=== PATIENT | female | born 1965 | race Two or more races ===

== ENCOUNTER 2024-02-03 02:03 | Emergency (ER) | payer BC, OTHER ==
[~2024-02-03] VITALS: Ht 152.4 cm; Wt 83.9 kg
[2024-02-03] MEDS ORDERED: ASPIRIN 325 MG TABLET ONE (02:26)
[2024-02-03] MEDS: ASPIRIN 325 MG TABLET PO ONE (02:29)
[2024-02-03 03:07] LABS: BASOPHILS # (AUTO) 0.1 K/uL (0.0-0.2); BASOPHILS % (AUTO) 0.8 % (0.0-2.0); EOSINOPHILS # (AUTO) 0.1 K/uL (0.0-0.7); EOSINOPHILS % (AUTO) 1.9 % (0.0-6.0); HEMATOCRIT 41 % (33-45); HEMOGLOBIN 14.1 g/dL (11.5-14.8); LYMPHOCYTES # (AUTO) 2.6 K/uL (0.8-4.8); LYMPHOCYTES % (AUTO) 36.4 % (20.0-44.0); MEAN CORPUSCULAR HEMOGLOBIN 29 PG (26.0-33.0); MEAN CORPUSCULAR HGB CONC 34 g/dl (31.0-36.0); MEAN CORPUSCULAR VOLUME 86 fL (82-100); MONOCYTES # (AUTO) 0.5 K/uL (0.1-1.30); MONOCYTES % (AUTO) 6.4 % (2.0-12.0); NEUTROPHILS # (AUTO) 3.8 K/uL (1.8-8.9); NEUTROPHILS % (AUTO) 54.5 % (43.0-81.0); PLATELET COUNT (AUTO) 161 K/uL (150-450); RED BLOOD CELL COUNT(AUTO) 4.81 MIL/uL (4.0-5.2); RED CELL DISTRIBUTION WIDTH 13.1 % (11.5-15.0)
[2024-02-03 03:11] LABS: CALCIUM, SERUM 9.2 mg/dL (8.5-10.1); CARBON DIOXIDE 26 mmol/L (21-32); CHLORIDE 104 mmol/L (98-107); CREATININE 0.9 mg/dL (0.6-1.3); GLUCOSE 212 mg/dL (74-106); POTASSIUM 3.7 mmol/L (3.5-5.1); SODIUM SERUM 138 mmol/L (136-145); UREA NITROGEN, BLOOD 21 mg/dL (7-18)
[2024-02-03 03:18] LABS: INR 1.06 (0.91-1.10); PARTIAL THROMBOPLASTIN TIME 24.1 SEC (24.3-34.3); PROTHROMBIN TIME 11.2 SECS (9.2-11.1)
[2024-02-03] MEDS ORDERED: IV NS 0.9% 250 ML IV ONE (03:51)
[2024-02-03] MEDS ORDERED: IOHEXOL-350 100 ML VIAL IV ONE (03:51)
[2024-02-03 05:51] VITALS: BP 128/78; TEMP 98; O2SAT 98
[2024-02-04] MEDS ORDERED: FAMO20TA8 PO (08:23)
[2024-02-04] MEDS ORDERED: NAPR-1009 PO (08:23)
== END 2024-02-03 06:03 | disposition left against medical advice (07) ==
LOC: ER 02:05
DX: R07.9 Chest pain, unspecified (principal); R79.89 Other specified abnormal findings of blood chemistry; R00.0 Tachycardia, unspecified
CPT/HCPCS: 99285; 71275; 71045; 93005; 85025; 80048; 85378; 36415; 84484; 85730; J7050; Q9967

== ENCOUNTER 2024-02-04 05:04 | Emergency (ER) | payer BC, OTHER ==
[~2024-02-04] VITALS: Ht 152.4 cm; Wt 83.9 kg
[2024-02-04 06:23] LABS: BASOPHILS % (AUTO) 0.8 % (0.0-2.0); EOSINOPHILS # (AUTO) 0.1 K/uL (0.0-0.7); EOSINOPHILS % (AUTO) 2.4 % (0.0-6.0); HEMATOCRIT 40 % (33-45); HEMOGLOBIN 13.8 g/dL (11.5-14.8); LYMPHOCYTES # (AUTO) 1.8 K/uL (0.8-4.8); LYMPHOCYTES % (AUTO) 33.7 % (20.0-44.0); MEAN CORPUSCULAR HEMOGLOBIN 30 PG (26.0-33.0); MEAN CORPUSCULAR HGB CONC 35 g/dl (31.0-36.0); MEAN CORPUSCULAR VOLUME 86 fL (82-100); MONOCYTES # (AUTO) 0.4 K/uL (0.1-1.30); MONOCYTES % (AUTO) 7.7 % (2.0-12.0); NEUTROPHILS % (AUTO) 55.4 % (43.0-81.0); PLATELET COUNT (AUTO) 166 K/uL (150-450); RED BLOOD CELL COUNT(AUTO) 4.66 MIL/uL (4.0-5.2); RED CELL DISTRIBUTION WIDTH 13.3 % (11.5-15.0); WHITE BLOOD COUNT (AUTO) 5.4 K/uL (4.3-11.0)
[2024-02-04] MEDS ORDERED: ASPIRIN EC 325 MG TABLET.DR PO ONE (06:33)
[2024-02-04 06:35] LABS: CALCIUM, SERUM 8.7 mg/dL (8.5-10.1); CARBON DIOXIDE 24 mmol/L (21-32); CHLORIDE 105 mmol/L (98-107); CREATININE 0.8 mg/dL (0.6-1.3); GLUCOSE 236 mg/dL (74-106); POTASSIUM 3.8 mmol/L (3.5-5.1); SODIUM SERUM 138 mmol/L (136-145); UREA NITROGEN, BLOOD 15 mg/dL (7-18)
[2024-02-04] MEDS: ASPIRIN EC 325 MG TABLET.DR PO ONE (06:38)
[2024-02-04 06:50] LABS: INR 1.04 (0.91-1.10); PARTIAL THROMBOPLASTIN TIME 23.4 SEC (24.3-34.3)
[2024-02-04 07:00] VITALS: BP 116/65; TEMP 98.2; O2SAT 97
[2024-02-04] MEDS ORDERED: FAMO20TA8 PO (08:23)
[2024-02-04] MEDS ORDERED: NAPR-1009 PO (08:23)
== END 2024-02-04 08:30 | disposition home or self-care (01) ==
LOC: ER 05:05
DX: R07.9 Chest pain, unspecified (principal); R00.0 Tachycardia, unspecified; M79.18 Myalgia, other site; R06.02 Shortness of breath; K21.9 Gastro-esophageal reflux disease without esophagitis; Z87.891 Personal history of nicotine dependence
CPT/HCPCS: 36415; 71045-TC; 80048-TC; 84484-TC; 85025-TC; 85730-TC